=== PATIENT | female | born 1975 | race Hispanic/Latino ===

== ENCOUNTER 2018-10-09 15:04 | Emergency (ER) | payer SELFPAY ==
[2018-10-09] MEDS ORDERED: Metoclopramide HCl 10 MG/2 ML VIAL ONE (17:36)
[2018-10-09] MEDS ORDERED: Ketorolac Tromethamine 30 MG/ML VIAL ONE (17:36)
== END 2018-10-09 19:39 | disposition home or self-care (01) ==
LOC: ERS 15:04
DX: G43.909 Migraine, unspecified, not intractable, without status migrainosus (principal); J02.9 Acute pharyngitis, unspecified
CPT/HCPCS: 87804; 96365; 96375; J1885; J2765